=== PATIENT | female | born 1975 | race Two or more races ===

== ENCOUNTER 2016-10-19 13:29 | Emergency (ER) | payer MEDICAID ==
[~2016-10-19] VITALS: Ht 154.9 cm; Wt 101.2 kg
[~2016-10-19 13:29] MED LIST: ALBU18 IN; ALPR1TAB7 PO; ATOR40TA52 PO; AZEL137S6; BECL80AE9 IN; BUS10T PO; FENO160T8 PO; IBU800T; LISI40TA; OMERPRAZOLE; QUET300T23 PO; QUET400T3 PO; SIMV-13; TRAM-297 PO; TRAM50TA2; VALA1TAB29 PO; ZOLP5TAB5 PO
[2016-10-19 14:18] LABS: Basophils # (auto) 0.1 uL; Basophils % (auto) 0.8 % (0.0-2.0); Eosinophils # (auto) 0.1 uL; Hematocrit 37.7 % (36.0-46.0); Lymphocytes # (auto) 2.7 uL; Lymphocytes % (auto) 30.4 % (10.0-50.0); Mean Corpuscular Hemoglobin 30.9 pg (28.0-32.0); Mean Corpuscular Hgb Conc. 34.5 g/dL (32.0-36.0); Mean Corpuscular Volume 89.5 fL (80.0-100.0); Mean Platelet Volume 7.4 fL (7.4-10.4); Monocytes # (auto) 0.6 uL; Monocytes % (auto) 7.1 % (0.0-12.0); Neutrophils # (auto) 5.4 uL; Neutrophils % (auto) 60.7 % (37.0-80.0); Platelet Count (auto) 310 10^3/uL (140-450); Red Cell Distribution Width 14.7 % (11.6-16.0); White Blood Cell 8.8 10^3/uL (4.4-10.8)
[2016-10-19 14:46] LABS: Albumin 3.7 g/dL (3.4-5.0); BUN/Creatinine Ratio 16.4; Bilirubin, Total 0.3 mg/dL (0.2-1.0); Calcium 9.2 mg/dL (8.5-10.1); Potassium 4.1 mmol/L (3.5-5.1); Total Protein 7.6 g/dL (6.4-8.2)
[2016-10-19 15:04] LABS: Urine Bilirubin Negative (Negative); Urine Blood TRACE /uL (Negative); Urine Color Yellow (Yellow); Urine Glucose Normal (Normal); Urine Ketone Negative (Negative); Urine Nitrite Negative (Negative); Urine RBC 1 /hpf (0 - 4); Urine Squamous Epithelial Cell FEW /hpf (<5); Urine Urobilinogen Normal (Negative); Urine pH 5.5 (5.0-8.0)
[2016-10-19 15:38] VITALS: BP 138/88
== END 2016-10-19 17:40 | disposition home or self-care (01) ==
LOC: ER 13:31
DX: R10.9 Unspecified abdominal pain (principal); E78.5 Hyperlipidemia, unspecified; I10 Essential (primary) hypertension; F17.210 Nicotine dependence, cigarettes, uncomplicated; Z88.1 Allergy status to other antibiotic agents; Z90.89 Acquired absence of other organs
CPT/HCPCS: 36415; 74176; 80053; 81001; 85025

== ENCOUNTER 2019-07-22 11:16 | Emergency (ER) | payer MEDICAID ==
[~2019-07-22] VITALS: Ht 154.9 cm; Wt 108.9 kg
[~2019-07-22 11:16] MED LIST changes: -IBU800T; -TRAM50TA2
[2019-07-22 11:36] VITALS: BP 159/91
[2019-07-22] MEDS ORDERED: METHOCARBAMOL 500 MG TAB PO ONE (13:15)
[2019-07-22] MEDS ORDERED: KETOROLAC TROMETH 60MG/2ML VIAL IM ONE (13:15)
== END 2019-07-22 13:35 | disposition home or self-care (01) ==
LOC: ER 11:16
DX: R07.81 Pleurodynia (principal); I10 Essential (primary) hypertension; E78.00 Pure hypercholesterolemia, unspecified; F17.210 Nicotine dependence, cigarettes, uncomplicated; Z90.49 Acquired absence of other specified parts of digestive tract; Z88.1 Allergy status to other antibiotic agents; Z79.899 Other long term (current) drug therapy; V43.62XA Car passenger injured in collision with other type car in traffic accident, initial encounter; Y93.89 Activity, other specified; Y92.410 Unspecified street and highway as the place of occurrence of the external cause; Y99.8 Other external cause status
CPT/HCPCS: 71101; 96372; 99283; J1885

== ENCOUNTER 2022-03-08 17:35 | Emergency (ER) | payer MEDICAID ==
[~2022-03-08] VITALS: Ht 157.5 cm; Wt 113.4 kg
[~2022-03-08 17:35] MED LIST changes: -LISI40TA; +LISI40TA11; -QUET300T23 PO; +QUET300T24 PO; -QUET400T3 PO; +QUET400T4 PO
[2022-03-08] MEDS ORDERED: HYDROmorphone HCL 2 MG/ML VL/or syr IM ONE (20:15)
[2022-03-08] MEDS ORDERED: ONDANSETRON HCL 4 MG/2 ML VIAL IM ONE (20:15)
[2022-03-08 23:06] VITALS: BP 154/90
== END 2022-03-08 23:07 | disposition home or self-care (01) ==
LOC: ER 17:35 → EDBD 17:35 → ER 23:03
DX: S82.832A Other fracture of upper and lower end of left fibula, initial encounter for closed fracture (principal); I10 Essential (primary) hypertension; E78.5 Hyperlipidemia, unspecified; F17.210 Nicotine dependence, cigarettes, uncomplicated; Z90.49 Acquired absence of other specified parts of digestive tract; Z79.899 Other long term (current) drug therapy; Z88.1 Allergy status to other antibiotic agents; W01.0XXA Fall on same level from slipping, tripping and stumbling without subsequent striking against object, initial encounter; Y93.89 Activity, other specified; Y92.89 Other specified places as the place of occurrence of the external cause; Y99.8 Other external cause status
CPT/HCPCS: 73700; 96372; 99285; J1170; J2405

== ENCOUNTER 2023-09-15 09:10 | Emergency (ER) | payer MEDICAID ==
[~2023-09-15] VITALS: Ht 154.9 cm; Wt 119.7 kg
[~2023-09-15 09:10] MED LIST changes: +FENO160T PO; -FENO160T8 PO; -LISI40TA11; +LISI40TA16; -SIMV-13; +SIMV40TA18
[2023-09-15 10:00] LABS: Basophils # (auto) 0 10 ^3/uL (0-0.2); Basophils % (auto) 0.7 % (0.0-2.0); Eosinophils # (auto) 0.1 10 ^3/uL (0-0.8); Eosinophils % (auto) 1.5 % (0.0-7.0); Hematocrit 38.6 % (36.0-46.0); Hemoglobin 12.9 g/dL (12.2-16.2); Lymphocytes # (auto) 2.6 10 ^3/uL (0.4-5.4); Lymphocytes % (auto) 43.3 % (10.0-50.0); Mean Corpuscular Hemoglobin 31.4 pg (28.0-32.0); Mean Corpuscular Hgb Conc. 33.5 g/dL (32.0-36.0); Mean Corpuscular Volume 93.8 fL (80.0-100.0); Monocytes # (auto) 0.6 10 ^3/uL (0-1.3); Monocytes % (auto) 9.2 % (0.0-12.0); Neutrophils # (auto) 2.8 10 ^3/uL (1.6-8.6); Neutrophils % (auto) 45.3 % (37.0-80.0); Red Blood Cells 4.11 10^6/uL (4.0-5.20); Red Cell Distribution Width 14.5 % (11.8-14.3); White Blood Cell 6.1 10^3/uL (4.4-10.8)
[2023-09-15 10:39] LABS: Alanine Aminotransferase 29 U/L (7-40); Albumin 4.6 g/dL (3.2-4.8); Alkaline Phosphatase 49 U/L (46-116); Anion Gap 9 (5-15); Aspartate Aminotransferase 24 U/L (13-40); BUN/Creatinine Ratio 15.8 (10.0-20.0); Bilirubin, Total 0.3 mg/dL (0.2-1.0); Blood Urea Nitrogen 12 mg/dL (9-23); Carbon Dioxide 25 mmol/L (20-30); Chloride 106 mmol/L (98-107); Glucose 112 mg/dL (74-106); Lipase 41 U/L (12-53); Potassium 4.1 mmol/L (3.5-5.1); Sodium 140 mmol/L (136-145); Total Protein 7.3 g/dL (5.7-8.2)
[2023-09-15 11:58] LABS: Urine Bacteria FEW /hpf (None Seen); Urine Blood Negative /uL (Negative); Urine Clarity HAZY (Clear); Urine Color Straw (Yellow); Urine Protein, UAD Negative (Negative); Urine Specific Gravity 1.015 (1.001-1.035); Urine Urobilinogen Normal (Negative); Urine WBC 1 /hpf (0 - 5)
[2023-09-15 12:42] VITALS: BP 150/81; PULSE 93; RESP 16; O2SAT 97
== END 2023-09-15 12:52 | disposition home or self-care (01) ==
LOC: ER 09:10
DX: R10.11 Right upper quadrant pain (principal); E11.9 Type 2 diabetes mellitus without complications; E78.5 Hyperlipidemia, unspecified; I10 Essential (primary) hypertension; F17.210 Nicotine dependence, cigarettes, uncomplicated; Z88.1 Allergy status to other antibiotic agents
CPT/HCPCS: 36415; 76705; 80053; 81001; 83690; 85025

== ENCOUNTER 2024-01-16 18:24 | Emergency (ER) | payer MEDICAID ==
[~2024-01-16] VITALS: Ht 154.9 cm; Wt 125.3 kg
[2024-01-16 23:43] VITALS: BP 121/85; PULSE 58; RESP 16; TEMP 98.2; O2SAT 97
[2024-01-17] MEDS ORDERED: ACE3T PO (00:20)
[2024-01-17] MEDS: HYDROcodone-ACET 5/325MG TAB PO ONE (00:28)
[2024-01-17] MEDS: ONDANSETRON ODT 4 MG TAB PO ONE (00:28)
== END 2024-01-17 00:47 | disposition home or self-care (01) ==
LOC: ER 18:24
DX: M17.12 Unilateral primary osteoarthritis, left knee (principal); G89.29 Other chronic pain; F41.9 Anxiety disorder, unspecified; F32.A Depression, unspecified; E11.9 Type 2 diabetes mellitus without complications; E78.5 Hyperlipidemia, unspecified; I10 Essential (primary) hypertension; F20.9 Schizophrenia, unspecified; Z90.49 Acquired absence of other specified parts of digestive tract; Z79.899 Other long term (current) drug therapy; Z88.1 Allergy status to other antibiotic agents
CPT/HCPCS: 73562; 99283; Q0162

== ENCOUNTER 2025-04-18 19:15 | Emergency (ER) | payer MEDICAID ==
[~2025-04-18] VITALS: Ht 157.5 cm; Wt 110.3 kg
[~2025-04-18 19:15] MED LIST changes: +ACE3T PO
[2025-04-18] MEDS: ONDANSETRON HCL 4 MG/2 ML VIAL IV ONE (19:48)
[2025-04-18] MEDS: SODIUM CHLORIDE 0.9% 1,000 ML IV ONE (19:48)
[2025-04-18 20:19] LABS: Hematocrit 40.0 % (36.0-46.0); Hemoglobin 13.7 g/dL (12.2-16.2); Mean Corpuscular Hemoglobin 31.4 pg (28.0-32.0); Mean Corpuscular Volume 91.6 fL (80.0-100.0); Nucleated Red Blood Cells % 0.1 %
[2025-04-18 20:33] LABS: Alanine Aminotransferase 19 U/L (7-40); Albumin 4.7 g/dL (3.2-4.8); Alkaline Phosphatase 104 U/L (46-116); Anion Gap 10 (5-15); BUN/Creatinine Ratio 15.1 (10.0-20.0); Blood Urea Nitrogen 11 mg/dL (9-23); Calcium 9.6 mg/dL (8.7-10.4); Carbon Dioxide 26 mmol/L (20-31); Chloride 102 mmol/L (98-107); Lipase 27 U/L (12-53); Potassium 3.7 mmol/L (3.5-5.1); Sodium 138 mmol/L (136-145); Total Protein 7.5 g/dL (5.7-8.2)
--- NOTE | 2025-04-18 20:33 | DVH ---
INDICATION: abd n/v TECHNIQUE: Multiple real-time sonographic images of the abdomen were obtained. COMPARISON: US GALLBLADDER on DOS: 09/15/23 FINDINGS: Increased echogenicity of the hepatic parenchyma consistent with steatosis.. The liver mikala ures 18.1 cm. No intrahepatic biliary ductal dilatation is noted. The gallbladder wall measures 0.17 cm and is unremarkable. No gallstones or sludge is seen. The co mmon duct measures 0.39 cm and is unremarkable. No pericholecystic fluid is noted. 0.39. Negative so nographic parekh's sign. The right kidney measures 9.4 cm. No hydronephrosis. The pancreas is visualized and appears normal The visualized portions of the IVC and aorta are grossly unremarkable. IMPRESSION: 1. 18.1 cm liver with parenchymal changes suggesting steatosis. 2. Gallbladder is negative 3. Pancreas appears normal 4. Right kidney measures 9.4 cm long there is no hydronephrosis
[2025-04-18 20:34] LABS: Bilirubin, Total 0.4 mg/dL (0.2-1.0)
[2025-04-18 20:35] LABS: Glucose 109 mg/dL (74-106)
--- NOTE | 2025-04-18 20:36 | ED.PDOC ---
GI ASSESSMENT HPI Comments HPI: 49-year-old female came to ER due to abdominal pain. Patient has been complaining of epigastric abdominal pain for the past three days, constant, nonradiating, associated with nausea and vomiting. States she vomited 3x today, yellowish, watery. Denies any diarrhea Initial Vitals BP: 126/76 HR: 79 RR: 16 O2: 94% Temp: 98.2 Past Medical History: Hypertension, dyslipidemia, schizophrenia Past Surgical History: Appendectomy Social History: Denies ETOH, smoking, and drug use. Medications: Allergies: Mina HPI: Poor Historian. REVIEW OF SYSTEMS: CONSTITUTIONAL: Denies acute: fever, diaphoresis, chills, generalized weakness. HEAD: Denies acute: headache, photophobia Eyes: Denies acute: Double vision, vision loss, eye pain, eye discharge. EARS: Denies acute: tinnitus, hearing loss, ear discharge, ear pain, THROAT: Denies acute: sore throat, swelling, difficulty swallowing , pain with swallowi ng, change in voice. NECK: Denies acute: neck pain, neck swelling, stiff neck. HEART: Denies acute : chest pain, palpitations, LUNGS: Denies acute: SOB, wheezing, cough, hemoptysis ABDOMEN: Denies acute: diarrhea, melena , hematemesis, hematochezia SKIN: Denies acute: rash, redness, lesions, itchiness. EXTREMITIES: Denies acute: calf pain, numbness, tingling, weakness, denies pain in extremity. Denies acute: Low back pain. Neuro: Denies acute: focal neurological deficit, motor or sensory focal neurological deficit, tremors, seizure like activity, confusion, dizziness, change in mental status, loss of bowel or bladder function, cauda equina like symptoms. : Denies acute: dysuria, hematuria, flank pain, increase in urinary frequency. PSYCH: Denies acute: hallucination, suicidal ideation, homicidal ideation. FEMALE: Denies acute: abnormal vaginal bleeding, foul odor, unusual discharge. PHYSICAL EXAM: General: -----[id number]---acute distress, awake and alert. Head: normocephalic, atraumatic. Neck: supple, trachea is midline, no swelling. Throat: Normal phonation. Eyes:, no erythema, no purulent discharge, no proptosis, no icterus. Heart: regular rate, regular rhythm, no significant murmur appreciated. Lungs: no apparent respiratory distress, Able to speak in full sentences. No wheezing, no rhonchi, no crackles. No stridors Clear to auscultation bilaterally. Abdomen: Epigastric tender to palpation, non distended, soft, no guarding, no rebound, + bowel sounds. Obese Neuro: Awake, Alert, oriented to name, self, situation, follows commands GCS=15. Speech is normal. Skin: no petechia, no purpura, no cyanosis, non-pale, not jaundice. Lower extremities: --no - Pitting edema no deformity, no focal swelling, no calf TTP. Makes eye contact. moves all four extremities. Face: no apparent facial droop. Ambulating in the ED independently. ED COURSE: DISCLAIMER: This medical document was created using an electronic medical record system with voice recognition software and computerized dictation system. Although this doc ument has been carefully reviewed, there might still be some phonetic and typographical errors. Occasional wrong-word or "sound-alike" substitutions may have occurred due to the inherent limitations of voice recognition software. These areas are purely typographical due to imperfections of the software programs and do not reflect any compromise in the patient's medical care. Please read the chart carefully and recognize, using context, where these substitutions have occurred. Chief Complaint: Abdominal Pain Time Seen by MD: 20:36 Primary Care Provider: KEARA Allergies: Coded Allergies: Amoxicillin (Verified Allergy, Mild, 09/24/11) Home Meds Active Scripts Acetaminophen W/ Codeine (Tylenol W/Cod #3) 1 Tab Tb, 1 TAB PO QIDP, #10 TAB 0 Refills Prov:NIURKA CANO 01/17/24 Reported Medications Albuterol Sulfate (Ventolin Hfa) Aer, 1 IN PRN for SHORTNESS OF BREATH, AER 07/11/16 Beclomethasone Dipropionate (Qvar) 80 Mcg Aer, 80 MCG IN, AER 07/11/16 Tramadol Hcl (Ultram) 50 Mg Tab, 1 TAB PO TID, #90 TAB 07/11/16 Quetiapine Fumerate (QUETIAPINE FUMARATE) 300 Mg Tab, 300 MG PO HS, TAB 07/11/16 Zolpidem Tartrate (Zolpidem Tartrate) 5 Mg Tab, 1 TAB PO QPM PRN for FOR I NSOMNIA, #30 TAB 2 Refills 07/11/16 Atorvastatin Calcium (ATORVASTATIN CALCIUM) 40 Mg Tab, 1 TAB PO DAILY, #30 TAB 5 Refills 07/11/16 Fenofibrate (Fenofibrate) 160 Mg Tab, 1 TAB PO DAILY, #30 TAB 5 Refills 07/11/16 Valacyclovir Hcl (Valacyclovir Hcl) 1 Gm Tab, 2 TAB PO ONCE, #30 TAB 3 Refills 07/11/16 Alprazolam (Alprazolam) 1 Mg Tab, 1 TAB PO TID, #90 TAB 07/11/16 Azelastine Hcl (Astelin) 137 Mcg Spr, 137 MCG 11/07/12 Quetiapine Fumerate (Seroquel Xr) 400 Mg Tab, 400 MG PO Need clarification of dose 11/07/12 Buspirone Hcl (Buspar) 10 Mg Tab, 10 MG PO 11/07/12 [Omerprazole] 20 MG No Conflict Check, 1 BID 09/24/11 Simvastatin (Simvastatin) 40 Mg Tab 01/19/11 Lisinopril (Lisinopril) 40 Mg Tab 01/19/11 Information Source: Patient Mode of Arrival: Ambulatory Past Medical History PAST MEDICAL HISTORY: Anxiety, Depression, DM, High Lipids, HTN, Schizophrenia Surgical History: Appendectomy 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 Was a procedure done?: No X-Ray, Labs, Meds, VS Vital Signs Date Time Temp Pulse Resp B/P (MAP) Pulse Ox O2 Delivery O2 Flow Rate FiO2 04/18/25 22:07 98.1 82 18 145/74 (97) 95 98.1 04/18/25 22:07 82 18 95 Room Air 04/18/25 19:57 Room Air* 0 21 04/18/25 19:16 98.2 79 16 126/76 94 98.2 Lab Test 04/18/25 21:20 04/18/25 20:00 Range/Units Urine Color Light-yellow Yellow Urine Clarity Clear Clear Urine pH 6.0 5.0-9.0 Urine Specific [place] 1.010 1.001-1.035 Urine Protein Negative Negative Urine Ketones Negative Negative Urine Blood Negative Negative /uL Urine Nitrite Negative Negative Urine Bilirubin Negative Negative Urine Urobilinogen Normal Negative mg/dL Urine Leukocyte Esterase Negative Negative /uL Urine RBC 1 0 - 4 /hpf Urine Microscopic WBC 1 0-5 /HPF Urine Squamous Epithelial Cells Few <5 /hpf Urine Bacteria None seen None Seen /hpf Urine Mucus Few None Seen Urine Glucose Normal Normal mg/dL White Blood Count 8.6 4.4-10.8 10^3/uL Red Blood Count 4.37 4.0-5.20 10^6/uL Hemoglobin 13.7 12.2-16.2 g/dL Hematocrit 40.0 36.0-46.0 % Mean Corpuscular Volume 91.6 80.0-100.0 fL Mean Corpuscular Hemoglobin 31.4 28.0-32.0 pg Mean Corpuscular Hemoglobin Concent 34.3 32.0-36.0 g/dL Red Cell Distribution Width 14.2 11.8-14.3 % Platelet Count 205 140-450 10^3/uL Mean Platelet Volume 8.3 6.9-10.8 fL Neutrophils (%) (Auto) 61.3 37.0-80.0 % Lymphocytes (%) (Auto) 27.6 10.0-50.0 % Monocytes (%) (Auto) 9.7 0.0-12.0 % Eosinophils (%) (Auto) 0.8 0.0-7.0 % Basophils (%) (Auto) 0.6 0.0-2.0 % Neutrophils # (Auto) 5.3 1.6-8.6 10 ^3/uL Lymphocytes # (Auto) 2.4 0.4-5.4 10 ^3/uL Monocytes # (Auto) 0.8 0-1.3 10 ^3/uL Eosinophils # (Auto) 0.1 0-0.8 10 ^3/uL Basophils # (Auto) 0 0-0.2 10 ^3/uL Nucleated Red Blood Cells 0.1 % Sodium Level 138 136-145 mmol/L Potassium Level 3.7 3.5-5.1 mmol/L Chloride Level 102 98-107 mmol/L Carbon Dioxide Level 26 20-31 mmol/L Anion Gap 10 5-15 Blood Urea Nitrogen 11 9-23 mg/dL Creatinine 0.73 0.550-1.02 mg/dL Glomerular Filtration Rate Calc 101 >90 mL/min BUN/Creatinine Ratio 15.1 10.0-20.0 Serum Glucose 109 H 74-106 mg/dL Lactic Acid Level 1.1 0.4-2.0 mmol/L Calcium Level 9.6 8.7-10.4 mg/dL Total Bilirubin 0.4 0.2-1.0 mg/dL Aspartate Amino Transferase (AST) 19 13-40 U/L Alanine Aminotransferase (ALT) 19 7-40 U/L Alkaline Phosphatase 104 46-116 U/L Troponin I High Sensitivity < 3 L </=34 ng/L Total Protein 7.5 5.7-8.2 g/dL Albumin 4.7 3.2-4.8 g/dL Lipase 27 12-53 U/L Current Medications Medications (Trade) Dose Ordered Sig/Paulina Route Start Time Stop Time Status Last Admin Sucralfate (Carafate Tab) 1 gm ONCE ONCE PO 04/18/25 21:15 04/18/25 21:22 DC 04/18/25 21:15 Pantoprazole Sodium (Protonix Tablet) 40 mg ONCE ONCE PO 04/18/25 21:15 04/18/25 21:22 DC 04/18/25 21:15 Lidocaine HCl (Xylocaine 2% Viscous) 10 ml ONCE ONCE PO 04/18/25 21:15 04/18/25 21:22 DC 04/18/25 21:15 [place] [address] Ph: [phone] DIAGNOSTIC IMAGING Diagnostic Imaging Report : [id number] Signed PATIENT: FARHAT MINA ACCT: [id number] UNIT: [id number] : 1975 LOC: ER ROOM / BED: / AGE / SEX: 49 / F ADM STATUS: REG ER SERVICE 35 ORDERING PHYSICIAN: NEGIN HICKMAN DO PROCEDURE(s): ABDL - ABDOMEN LIMITED REASON: abd n/v ORDER NUMBER(s): [id number], ACCESSION NUMBER(s): [id number] INDICATION: abd n/v TECHNIQUE: Multiple real-time sonographic images of the abdomen were obtained. COMPARISON: US GALLBLADDER on DOS: 09/15/23 FINDINGS: Increased echogenicity of the hepatic parenchyma consistent with steatosis.. The liver measures 18.1 cm. No intrahepatic biliary ductal dilatation is noted. The gallbladder wall measures 0.17 cm and is unremarkable. No gallstones or sludge is seen. The common duct measures 0.39 cm and is unremarkable. No pericholecystic fluid is noted. 0.39. Negative sonographic parekh's sign. The right kidney measures 9.4 cm. No hydronephrosis. The pancreas is visualized and appears normal The visualized portions of the IVC and aorta are grossly unremarkable. IMPRESSION: 1. 18.1 cm liver with parenchymal changes suggesting steatosis. 2. Gallbladder is negative 3. Pancreas appears normal 4. Right kidney measures 9.4 cm long there is no hydronephrosis ATED BY: EULALIA MOSES Jr., DO DICTATED DATE/TIME: 04/18/252029 SIGNED BY: EULALIA MOSES Jr., DO SIGNED DATE/TIME: 04/18/252029 CC: Time of 1ST Reevaluation: 20:33 Reevaluation 1ST: Unchanged Patient Education/Counseling: Diagnosis, Treatment Family Education/Counseling: No Family Present SEPSIS Sepsis Screen Date sepsis recognized/suspect: Apr 18, 2025 Time Sepsis recognized/suspect: 1915 Recent Procedure: No On Antibiotic Therapy: No Respiratory Rate >20: No Heart Rate >90: No Temp<36 C (96.8 F) or >38.3 C: No SBP <90 or MAP <65 mmHG: No New Acute Mental Status Change: No Is the patient on CPAP, BIPAP,: No Physician Orders Emergency Medical Service Coordinator (04/18/25 ) Electrocardigram (04/18/25 19:36) Abdomen Limited (04/18/25 19:36) Vital Signs Date Time Temp Pulse Resp B/P (MAP) Pulse Ox O2 Delivery O2 Flow Rate FiO2 04/18/25 22:07 98.1 82 18 145/74 (97) 95 98.1 04/18/25 22:07 82 18 95 Room Air 04/18/25 19:57 Room Air* 0 21 04/18/25 19:16 98.2 79 16 126/76 94 98.2 Laboratory Tests Test 04/18/25 20:00 Lactic Acid Level 1.1 mmol/L (0.4-2.0) White Blood Count 8.6 10^3/uL (4.4-10.8) Medications Medications Dose Ordered Sig/Paulina Route Start Time Stop Time Status Last Admin Dose Admin Lidocaine HCl 10 ml ONCE ONCE PO 04/18/25 21:15 04/18/25 21:22 DC 04/18/25 21:15 Pantoprazole Sodium 40 mg ONCE ONCE PO 04/18/25 21:15 04/18/25 21:22 DC 04/18/25 21:15 Sucralfate 1 gm ONCE ONCE PO 04/18/25 21:15 04/18/25 21:22 DC 04/18/25 21:15 Departure 1 Departure Time of Disposition: 21:14 Impression: Primary Impression: Epigastric abdominal pain Disposition: HOME / SELF CARE / HOMELESS Condition: Stable Additional Instructions: Additional instructions: You MUST follow-up with your primary care/family doctor in 1 to 2 days. If you are unable to see your primary care/family doctor, please return to our emergency room for re-assessment and re-evaluation in 1 to 2 days. Return to the emergency room here in our facility or to the nearest ER [facility] if your symptoms change or worsen. CONSULTATIONS: you MUST Follow-up for consultation as soon as possible with: --gastroenterology in 1-2 days. Please call for a point You MUST call the consultants office yourself to make an appointment. You may need to arrange that through your insurance and/or your primary/family doctor. If you are unable to see the eco industrial development consultant in 1 to 2 days, you must return to our emergency room (or any other ER of your choice) for re-assessment and re- evaluation. Adequate fluid hydration. Avoid fatty greasy spicy food. Avoid caffeinated products. Avoid NSAIDs. Below is a copy of your radiological report for follow up: [address] [address] Ph: [phone] DIAGNOSTIC IMAGING Diagnostic Imaging Report : [id number] Signed PATIENT: FARHAT MINA ACCT: [id number] UNIT: [id number] : 1975 LOC: ER ROOM / BED: / AGE / SEX: 49 / F ADM STATUS: REG ER SERVICE 35 ORDERING PHYSICIAN: NEGIN HICKMAN DO PROCEDURE(s): ABDL - ABDOMEN LIMITED REASON: abd n/v ORDER NUMBER(s): [id number], ACCESSION NUMBER(s): [id number] INDICATION: abd n/v TECHNIQUE: Multiple real-time sonographic images of the abdomen were obtained. COMPARISON: US GALLBLADDER on DOS: 09/15/23 FINDINGS: Increased echogenicity of the hepatic parenchyma consistent with steatosis.. The liver measures 18.1 cm. No intrahepatic biliary ductal dilatation is noted. The gallbladder wall measures 0.17 cm and is unremarkable. No gallstones or sludge is seen. The common duct measures 0.39 cm and is unremarkable. No pericholecystic fluid is noted. 0.39. Negative sonographic parekh's sign. The right kidney measures 9.4 cm. No hydronephrosis. The pancreas is visualized and appears normal The visualized portions of the IVC and aorta are grossly unremarkable. IMPRESSION: 1. 18.1 cm liver with parenchymal changes suggesting steatosis. 2. Gallbladder is negative 3. Pancreas appears normal 4. Right kidney measures 9.4 cm long there is no hydronephrosis ATED BY: EULALIA MOSES Jr., DO DICTATED DATE/TIME: 04/18/252029 SIGNED BY: EULALIA MOSES Jr., SIGNED DATE/TIME: 04/18/252029 CC: Discharged With: Self Critical Care Note Critical Care Time?: No I personally scribed for NEGIN HICKMAN DO ([email or web address]) on 04/18/25 at 20:36. Electronically submitted by Zac Cintron ([email or web address]). I personally scribed for NEGIN HICKMAN DO ([email or web address]) on 04/18/25 at 21:25. Electronically submitted by Zac Cintron ([email or web address]). NEGIN HICKMAN DO Apr 18, 2025 20:36
[2025-04-18] MEDS: PANTOPRAZOLE 40 MG TAB PO ONE (21:15)
[2025-04-18] MEDS: LIDOCAINE VISCOUS 2% 15ML UD PO ONE (21:15)
[2025-04-18] MEDS: SUCRALFATE 1 GM TAB PO ONE (21:15)
[2025-04-18 21:56] LABS: Urine Protein, UAD Negative (Negative)
[2025-04-18 22:07] VITALS: BP 145/74; PULSE 82; RESP 18; TEMP 98.1; O2SAT 95
== END 2025-04-18 22:46 | disposition home or self-care (01) ==
LOC: ER 19:15
DX: R10.13 Epigastric pain (principal); R11.2 Nausea with vomiting, unspecified; E78.5 Hyperlipidemia, unspecified; E11.9 Type 2 diabetes mellitus without complications; F20.9 Schizophrenia, unspecified; F32.A Depression, unspecified; F41.9 Anxiety disorder, unspecified; I10 Essential (primary) hypertension; Z79.899 Other long term (current) drug therapy; Z79.51 Long term (current) use of inhaled steroids; Z88.0 Allergy status to penicillin; Z90.49 Acquired absence of other specified parts of digestive tract
CPT/HCPCS: 36415; 76705; 80053; 81001; 83605; 83690; 84484; 85025